=== PATIENT | male | born 2000 | race Caucasian/White ===

== ENCOUNTER 2019-07-08 10:02 | Emergency (ER) | payer OTHER ==
[~2019-07-08] VITALS: Ht 188 cm; Wt 82.2 kg
[2019-07-08 10:12] VITALS: BP 115/66
[2019-07-08 11:49] VITALS: PULSE 87; TEMP 99.2
== END 2019-07-08 11:48 | disposition home or self-care (01) ==
LOC: COL.ER 10:02
DX: B34.9 Viral infection, unspecified (principal)